=== PATIENT | female | born 1965 | race Caucasian/White ===

== ENCOUNTER 2018-02-11 02:13 | Observation (INO) | payer OTHER ==
[2018-02-11] VITALS (9 sets, daily range): BP systolic 123–155; BP diastolic 61–77; PULSE 43–63; RESP 18–20; TEMP 96–97.8; O2SAT 96–99
[~2018-02-11 02:13] MED LIST: AMLO5TAB2 PO
[2018-02-11] MEDS ORDERED: SODIUM CHLORIDE 0.9% FLUSH 10 ML FLUSH IV FLUSH PRN (03:15)
[2018-02-11] MEDS ORDERED: NITROGLYCERIN 0.4 MG SL 25 TABS/BTL SL PRN (03:15)
[2018-02-11 05:04] LABS: TROPONIN I LESS THAN 0.02 NG/ML (0.02-0.05)
--- NOTE | 2018-02-11 07:05 | EKG ---
Date Performed: 02/11/2018 Time Performed: 03:17:42 PTAGE: 52 years EKG: SINUS BRADYCARDIA NONSPECIFIC T-WAVE ABNORMALITY BORDERLINE ECG NO PREVIOUS TRACING DOCTOR: Harris Anna Interpretating Date/Time 02/11/2018 07:04:17
--- NOTE | 2018-02-11 08:42 | HHI.HP ---
[facility] Unknown Admission Diagnosis Chest pain Diagnoses: (1) Chest pain (2) Hypertension Chief Complaint: Chest pain Travel History International Travel<30 Days: No Contact w/Intl Traveler <30 Da: No Traveled to Known Affected Are: No History of Present Illness Patient is a pleasant 52-year-old female patient with a new medical history of hypertension, who is from [place], who presented to the ED with complaints of chest pressure, headache and some dizziness. Patient states that yesterday around 5 AM she awoke to chest pain that was located in her left chest, characterized as heavy and pressure-like in nature, rated a 7 out of 10 at its worst on pain scale, with associated diaphoresis and mild shortness of breath, denied any nausea or vomiting associated with the pain. Patient states that the pain continued all day, denied any aggravating factors. She does state that her chest pain did resolve upon presentation to the ED when given aspirin and nitroglycerin. Patient does state that she had similar chest pain on Wednesday and it resolved on its own. Patient denies any recent illness including fever, chills, cough, abdominal pain, nausea, vomiting, diarrhea or dysuria. Patient denies history or current tobacco abuse. Denies any history of heart disease. She does have a history of hypertension, states she took her blood pressure yesterday with a systolic in the 150s. She denies ever having a stress test in the past. She does not have a local primary care physician, she is from [place] and follows with the PCP up [place]. Paternal medical history significant for [place]. Review of Systems Constitutional: COMPLAINS OF: Fatigue, DENIES: Fever, Chills Eyes: DENIES: Diplopia Ears, nose, mouth, throat: DENIES: Vertigo Respiratory: COMPLAINS OF: Shortness of breath, DENIES: Cough, Sputum production Cardiovascular: COMPLAINS OF: Chest pain, DENIES: Syncope, Dyspnea on Exertion , Lower Extremity Edema Gastrointestinal: DENIES: Abdominal pain, Black stools, Bloody stools, Constipation, Diarrhea, Nausea, Vomiting Musculoskeletal: DENIES: Joint pain Hematologic/lymphatic: DENIES: Bruising Immunologic/allergic: DENIES: Eczema Neurologic: DENIES: Abnormal gait Psychiatric: COMPLAINS OF: Anxiety Except as stated in HPI: all other systems reviewed are Neg Past Family Social History Past Medical History Hypertension Past Surgical History Hysterectomy Right shoulder repair Reported Medications Active Reported Amlodipine (Amlodipine Besylate) 5 Mg Tab 5 Mg PO DAILY Allergies: Coded Allergies: No Known Allergies (Unverified , 02/10/18) Active Ordered Medications Current Medications Medications (Trade) Dose Ordered Sig/Roro Route Start Time Stop Time Status Last Admin (NS Flush) 2 ml UNSCH PRN IV FLUSH 02/11/18 03:15 (NS Flush) 2 ml BID IV FLUSH 02/11/18 09:00 02/11/18 08:10 (Nitrostat Sl) 0.4 mg Q5M PRN SL 02/11/18 03:15 Family History Paternal medical history significant for [place] at the age of 85. Mother had breast cancer. Social History Patient denies any current or previous tobacco abuse, denies any alcohol or illicit drug use. Physical Exam Vital Signs Vital Signs Date Time Temp Pulse Resp B/P (MAP) Pulse Ox O2 Delivery O2 Flow Rate FiO2 02/11/18 07:50 96.3 43 18 132/61 (84) 96 02/11/18 04:00 96.0 58 20 123/72 (89) 97 02/11/18 03:45 21 Physical Exam GENERAL: Well-developed, well-nourished patient in [facility]. SKIN: Warm and dry. No rash. HEAD: Normocephalic. Atraumatic. EYES: Pupils equal and round. No scleral icterus. No injection or drainage. ENT: No nasal bleeding or discharge. Mucous membranes pink and moist. NECK: Supple. Trachea midline. CARDIOVASCULAR: Regular rate and rhythm. S1, S2 noted. No murmur appreciated. No chest pain to palpation. RESPIRATORY: No accessory muscle use. Clear to auscultation. Breath sounds equal bilaterally. GASTROINTESTINAL: Abdomen soft, non-tender, nondistended. Normoactive bowel sounds x4. MUSCULOSKELETAL: No obvious deformities. Extremities without clubbing, cyanosis , or edema. NEUROLOGICAL: Awake and alert. No obvious cranial nerve deficits. Motor grossly within normal limits. 5/5 muscle strength in bilateral upper and lower extremities. Normal speech. PSYCHIATRIC: Appropriate mood and affect; insight and judgment normal. Laboratory Laboratory Tests Test 02/11/18 03:51 Total Creatine Kinase 59 Troponin I LESS THAN 0.02 Septic Shock Reassessment Septic shock perfusion: reassessment completed Caprini VTE Risk Assessment Caprini VTE Risk Assessment: No/Low Risk (score <= 1) Caprini Risk Assessment Model Point Value = 1 Point Value = 2 Point Value = 3 Point Value = 5 Age 41-60 Minor surgery BMI > 25 kg/m2 Swollen legs Varicose veins or History of unexplained or recurrent spontaneous Oral contraceptives or hormone replacement Sepsis (< 1 month) Serious lung disease, including pneumonia (< 1 month) Abnormal pulmonary function Acute myocardial infarction Congestive heart failure (< 1 month) History of inflammatory bowel disease Medical patient at bed rest Age 61-74 Arthroscopic surgery Major open surgery (> 45 min) Laparoscopic surgery (> 45 min) Malignancy Confined to bed (> 72 hours) Immobilizing plaster cast Central venous access Age >= 75 History of VTE Family history of VTE Factor V Leiden Prothrombin [id number] Lupus anticoagulant Anticardiolipin antibodies Elevated serum homocysteine Heparin-induced thrombocytopenia Other congenital or acquired thrombophilia Stroke (< 1 month) Elective arthroplasty Hip, pelvis, or leg fracture Acute spinal cord injury (< 1 month) Prophylaxis Regimen Total Risk Factor Score Risk Level Prophylaxis Regimen 0-1 Low Early ambulation 2 Moderate Order ONE of the following: *Sequential Compression Device (SCD) *Heparin 5000 units SQ BID 3-4 Higher Order ONE of the following medications: *Heparin 5000 units SQ TID *Enoxaparin/Lovenox 40 mg SQ daily (WT < 150 kg, CrCl > 30 mL/min) *Enoxaparin/Lovenox 30 mg SQ daily (WT < 150 kg, CrCl > 10-29 mL/min) *Enoxaparin/Lovenox 30 mg SQ BID (WT < 150 kg, CrCl > 30 mL/min) AND/OR *Sequential Compression Device (SCD) 5 or more Highest Order ONE of the following medications: *Heparin 5000 units SQ TID (Preferred with Epidurals) *Enoxaparin/Lovenox 40 mg SQ daily (WT < 150 kg, CrCl > 30 mL/min) *Enoxaparin/Lovenox 30 mg SQ daily (WT < 150 kg, CrCl > 10-29 mL/min) *Enoxaparin/Lovenox 30 mg SQ BID (WT < 150 kg, CrCl > 30 mL/min) AND *Sequential Compression Device (SCD) Assessment and Plan Problem List: (1) Chest pain ICD Code: R07.9 - Chest pain, unspecified Plan: Patient has been admitted to the chest pain center for observation. Serial EKGs and serial troponins have been ordered for ruling out ACS purposes. Serial troponins flat. EKG reviewed showing sinus bradycardia, no ST changes to indicate ischemia. Chest pain has resolved at this time. No chest discomfort to palpation. Nitroglycerin as needed for any chest pain. Was given aspirin and nitroglycerin in the ED. Will place on aspirin daily for CAD prevention. Continue cardiac telemetry, patient is bradycardic with a heart rate in the 40s. Asymptomatic. CBC and BMP reviewed, essentially unremarkable. BNP 28. Chest x-ray showing diminished lung volumes with probable atelectasis. Patient will undergo a cardiac treadmill stress test to further rule out any ischemia. Patient's risk factors include father with history of CAD and [place], age, and history of hypertension. Further treatment plan and hospitalization will depend on cardiac treadmill images. Patient is stable at this time and agreeable to the plan. (2) Hypertension ICD Code: I10 - Essential (primary) hypertension Plan: Patient will be restarted on her home amlodipine. Monitor blood pressure trends. (3) Bradycardia ICD Code: R00.1 - Bradycardia, unspecified Plan: Patient is asymptomatic. Heart rate in the 40s. Will continue cardiac telemetry. DVT prophylaxis: SCDs. Ambulation. Assessment and Plan Patient underwent cardiac treadmill stress test, imaging reviewed by on-call karate instructor, Dr. Ahn, markedly depressed ST changes in inferior leads as well as the 3, V4, V5, V6. Patient will be transferred to CICU at the [facility] to undergo a cardiac catheterization. Dr. Patton, on-call karate instructor has been updated. Melissa Bradley Feb 11, 2018 08:42
[2018-02-11] MEDS ORDERED: SODIUM CHLORIDE 0.9% FLUSH 10 ML FLUSH IV FLUSH SCH (09:00)
[2018-02-11] MEDS ORDERED: HEPARIN-NS/PF INJ 1,000 ML ONE (13:49)
[2018-02-11] MEDS ORDERED: NITROGLYCERIN INJ 5 ML ONE (13:51)
[2018-02-11] MEDS ORDERED: MIDAZOLAM HCL 2 MG/2 ML VIAL ONE (14:36)
--- NOTE | 2018-02-11 14:59 | MB ---
cc: Mic Patton MD DATE: 02/11/2018 INDICATION: Abnormal stress test, intermediate risk. HISTORY OF PRESENT ILLNESS: This is a 52-year-old female with history of hypertension, who is here from [place]. She presents with several episodes of intermittent substernal chest pain associated with shortness of breath and diaphoresis. Symptoms were relieved by nitroglycerin. She presented to [place], underwent exercise electrocardiogram. Initially, she was going to have a nuclear myocardial perfusion, but secondary to development of symptoms associated with profound ST depression, the remainder of the stress test was terminated. We were contacted to send her over for consideration of cardiac catheterization. PAST MEDICAL HISTORY: Hypertension. SOCIAL HISTORY: Denies any alcohol, tobacco or drug use. FAMILY HISTORY: Denies any family history of early coronary artery disease or sudden cardiac . REPORTED MEDICATIONS: Amlodipine. ALLERGIES: NONE. REVIEW OF SYSTEMS: A 12-point review of systems was performed, negative unless otherwise noted in the History Of Present Illness. PHYSICAL EXAMINATION: VITAL SIGNS: Temperature is 96, pulse is 58, blood pressure 132/61 mmHg. GENERAL: Alert and oriented x3, in no acute distress. HEENT: Exam shows pupils reactive to light and accommodation. Extraocular movements are intact. NECK: No elevation in jugular venous distention. No thyromegaly. No lymphadenopathy. No carotid bruits. LUNGS: Clear to auscultation bilaterally. CARDIOVASCULAR: Regular rate and rhythm without murmurs, rubs, or gallops. ABDOMEN: Nontender, nondistended with good bowel sounds. No hepatosplenomegaly. EXTREMITIES: No clubbing, cyanosis or edema and good peripheral pulses. NEUROLOGIC: Cranial nerves intact. Motor, sensory grossly intact. LABORATORY DATA: Troponins negative. ASSESSMENT: 1. Unstable angina. 2. Intermediate risk stress test. 3. Hypertension. PLAN: Given the patient's symptoms in the setting of intermediate stress test with cardiovascular risk factors, we elected to proceed with cardiac catheterization. She was transferred over from [facility] to the [facility] for cardiac catheterization. Risks, benefits, and alternatives were discussed with the patient. The patient understood and consented to the procedure. Mic Patton MD MALA/SB , 02:44 PM , 02:58 PM
--- NOTE | 2018-02-11 15:08 | CATHPROC ---
[facility] HIS Report Study Information Study Number Admission Scheduled Start Study Start [id number] Feb 11 2018 2:23AM 02/11/2018 Feb 11 2018 2:27PM [facility] Cardiac Catheterization Admit Source Facility Department Transfer in from another acute care facility [facility] - Analytics Leader Physician and Clinical Staff Initial Mic Phelps Medical Administrator Angel Scruggs,RN Other cathlab, cathlab Recorder Paul Mares RCIS(BS) Scrub Juilann Medley,RT(R) Procedures Performed Procedure Location (Site) Vessel Name Coronary Angiograms LCA Left Coronary Coronary Angiograms RCA Right Coronary L Heart Cath Equipment Time Bar And Filler Assembler Description Size Mfg Part Number Used/Scraped TRANSDUCER, TRUWAVE [id number] 14:29 NINO RIDDLE * Used W/STOCKCOCK *[id number] *[id number] 14:29 [employer]ut BLANKET,WARM AIR CCL * Used *[id number] 14:29 [employer] PACK, CCL CUSTOM * Used *[id number] 14:29 [employer] SUPPORT, ARTERIAL ADULT [id number] *[id number] Used [id number] 14:29 [employer] PACER PEN, SKIN DUAL W/ RULER * Used *[id number] 14:53 MEDTRONIC JR 5.0 DXTERITY CATHETER fr 5 [id number] Used BAND, RADIAL COMPRESSION TR [id number] 14:58 [employer] 24CM Used SHORT 24 *[id number] SHEATH, FR6 RADIAL PRELUDE 14:29 [employer] FR 6 [id number] Used EASE 11CM [id number] 14:29 [employer] WIRE, EXCHANGE 260CM 3MMJ 260CM Used *[id number] 14:29 NAMIC MANIFOLD, 4 PORT * Used *[id number] 14:29 [employer]COMED OMNIPAQUE, 350 MG, 150ML 150ML [id number] Used History: Current Medications Medication Dosage/Unit Route Frequency Last Date/Time Taken NTG Patch History: Allergies Allergy Reaction No Known Allergies History: Risk Factors Family History of Hypertension Dyslipidemia Previous CA Previous Heart Failure Premature CAD Yes No No No No Prior Valve Prior PCI Prior CABG Surgery No No No Cerebrovascular Peripheral Artery Chronic Lung On Dialysis Diabetes Disease Disease Disease No No No No No History: Symptoms/Diagnosis Selection Items Chest pain History: Stress Tests Stress or Imaging Studies Performed Yes Standard Exercise Stress Test No Stress Echo No Stress Test SPECT Stress Test SPECT Result Stress Test SPECT Ischemia Risk/Extent Yes Positive Intermediate Stress Test CMR No Cardiac CTA Coronary Calcium Score No No History: Other Disease Selection Items HTN History: Other Current Smoker No Labs Hgb (g/dl) 11.60-17.00 Not Drawn Creatinine (mg/dl) 0.50-1.30 Not Drawn Troponin I (ng/ml) CPK (u/l) CPK-MB (ng/ML) 0.02-0.05 26.00-308.00 0.50-3.60 0.02 56 Not Drawn Medication Medication Total Dose (Bolus/Oral) Medication Total Dosage/Unit 1% XYLOCAINE 2 mL FENTANYL 50 mcg HEPARIN 3000 units NTG (IC) 200 mcg VERSED 2 mg Medications (Bolus/Oral) Medication Time Given Dosage/Unit Administered By Reason VERSED 02/11/2018 2:47:28 PM 2 mg Angel Scruggs 2 mg VERSED given in lab by Angel Scruggs RN in Right Antecubital via Peripheral IV. FENTANYL 02/11/2018 2:48:02 PM 50 mcg Angel Scruggs 50 mcg FENTANYL given in lab by Angel Scruggs RN in Right Antecubital via Peripheral IV. 1% XYLOCAINE 02/11/2018 2:49:05 PM 2 mL Mic Patton 2 mL 1% XYLOCAINE given in lab by Mic Patton in Right Radial via Subcutaneous. NTG (IC) 02/11/2018 2:51:18 PM 200 mcg Mic Patton 200 mcg NTG (IC) given in lab by Mic Patton in Right Radial via Intra-arterial. HEPARIN 02/11/2018 2:52:14 PM 3000 units Angel Scruggs 3000 units HEPARIN given in lab by Angel Scruggs RN in Right Radial via Peripheral IV. Ordered by Mic Wolfe. Medication (Drip) Medication Time Given Dosage/Unit Concentration/Unit Diluent (ml) Solutio n IV Solutions 02/11/2018 2:27:28 PM 0 mL (IV) 500 NaCl .9 Patient arrived on IV Solutions in Right Antecubital via Peripheral IV. Pump/Drip Flow = 20 ml/hr usi ng NaCl .9. Initial Case Assessment Cardiovascular HR Rhythm NIBP Chest Pain 70 nsr 154/126 0 Edema Present Skin color Skin None Normal Warm Dry Circulatory - Right Pulses Dorsalis Pedis Femoral Radial 2 2 3 Scale (0,1,2,3,4,d) Scale (0,1,2,3,4,d) Neurological State Oriented to time-place- Alert Moves all extremities person Respiration - General Respiration Rate SpO2 (%) (B/min) 15 97 Final Case Assessment Cardiovascular HR Rhythm NIBP Chest Pain 56 nsr 148/76 0 Edema Present Skin color Skin None Normal Warm Dry Circulatory - Right Pulses Dorsalis Pedis Femoral Radial 2 2 3 Scale (0,1,2,3,4,d) Scale (0,1,2,3,4,d) Neurological State Oriented to time-place- Alert Moves all extremities person Respiration - General Respiration Rate SpO2 (%) (B/min) 15 97 Chronological Log Time Study Chronological Log 14:27:19 Patient arrived via Bed. 14:27:20 Patient Name, D.O.B, / Armband Verified By R.N. 14:27:20 Consent signed by the physician and the patient and verified by the Analytics Leader staff. 14:27:21 Pre-op and post- op instructions given; patient acknowledges understanding of instructions. 14:27:21 Verbal Stimulation=2 Physical Stimulation=2 Airway=2 Respiration=2 TOTAL=8. (0=absent, 1=li mited, 2=present) 14:27:22 Presedation assessment performed by Analytics Leader RN. 14:27:23 Immediate Presedation assesment performed by physician. 14:27:23 Patient has been NPO for More than 6Hrs. 14:27:24 Skin Breakdown- none per patient 14:27:24 Patient Warmer Placed on the Table. 14:27:25 Yolie Prominences Protected 14:: A # 20 IV was noted in the Antecubital (right). Grade = 0 14:27:28 Patient arrived on IV Solutions in Right Antecubital via Peripheral IV. Pump/Drip Flow = 20 ml/hr using NaCl .9. 14:27:29 History and physical on the chart or being dictated. 14:29: MD arrived. Assessment: Initial Case, HR=70 BPM, Rhythm=nsr, NXOT=015/126 mmhg, Chest Pain=0, Edema=None, Color=Normal, Skin = Warm, Dry 14:33:41 Right Pulses: Hector Ped=2, Femoral=2, Radial=3 Neurological: State=Alert, Ox3, FREED Respiration: Resp=15 B/min, SpO2=97 % Vitals capture started with the following parameters, Patient=Adult, Interval=5 min, Initial Pr odchbx=000 mmHg, 14:35:04 Deflation Rate=5 mmHg, Cuff placed on Left Arm 14:35:43 HR=70 bpm, LXAP=478/126 mmhg, SpO2=98.0 %, Pain=0, Montez=10, Villavicencio=2 Vitals capture started with the following parameters, Patient=Adult, Interval=5 min, Initial Pr odzhps=865 mmHg, 14:38:06 Deflation Rate=5 mmHg, Cuff placed on Left Arm 14:38:07 Reference ECG taken 14:39:12 Right Radial and groin(s) prepped with 2% chlorhexidine, and draped after a 3 min. waiting time. 14:39:21 Contrast Scanned 14:39:21 Immediate Presedation assesment performed by physician. 14:39:34 HR=57 bpm, CEOF=413/79 mmhg, SpO2=98.0 %, Resp=16 B/min, Pain=0, Montez=10, Villavicencio=2 14:43:48 HR=55 bpm, HXOD=543/89 mmhg, SpO2=99.0 %, Resp=17 B/min, Pain=0, Montez=10, Villavicencio=2 14:45:50 Pressure channel 1 zeroed. Time Out. Correct patient, correct procedure, correct physician, labs, allergies, and equipment verified with clinical laboratory scientist 14:46:43 team present. Fire risk assesment completed (see hard stop sheet for coding). Time Out Conc urred by MD and individual staff in procedure. 14:47:28 2 mg VERSED given in lab by Angel Scruggs RN in Right Antecubital via Peripheral IV. 14:48:02 50 mcg FENTANYL given in lab by Anegl Scruggs RN in Right Antecubital via Peripheral IV. 14:48:45 HR=80 bpm, KCFO=848/101 mmhg, EnX0=412.0 %, Resp=12 B/min, Pain=0, Montez=10, Villavicencio=2 14:49:00 Case Start 14:49:05 2 mL 1% XYLOCAINE given in lab by Mic Patton in Right Radial via Subcutaneous. 14:49:21 Verbal Stimulation=2 Physical Stimulation=2 Airway=2 Respiration=2 TOTAL=8. (0=absent, 1=li mited, 2=present) 14:50:03 Access site was Right Radial Artery. A SHEATH, FR6 RADIAL PRELUDE EASE 11CM FR 6 was advanced into the Radial (right) using the Perc utaneous 14:50:45 technique. 14:51:10 In the Radial (right) the SHEATH, FR6 RADIAL PRELUDE EASE 11CM FR [address] by Mic Patton. 14:51:18 200 mcg NTG (IC) given in lab by Mic Patton in Right Radial via Intra-arterial. 14:52:14 3000 units HEPARIN given in lab by Angel Scruggs RN in Right Radial via Peripheral IV. Orde red by Mic Patton. A JR 5.0 DXTERITY CATHETER fr 5 was advanced over a wire. OMNIPAQUE, 350 MG, 150ML 150ML was us ed for 14:52:36 injections. Recorded Pressure: LV, HR=54, Condition=Condition 1 14:53:37 (Left Ventricle) LV 149/4/14 Recorded Pressure: LV, Ao, HR=52, Condition=Condition 1 14:53:52 (Left Ventricle) LV 152/4/17, (Aorta) Ao 142/80/106 14:53:52 HR=52 bpm, TALD=531/78 mmhg, SpO2=96.0 %, Resp=13 B/min, Pain=0, Montez=10, Villavicencio=2 Recorded Pressure: Ao, HR=59, Condition=Condition 1 14:54:02 (Aorta) Ao 149/81/111 14:54:15 The RCA was injected and visualized at various angles. OMNIPAQUE, 350 MG, 150ML 150ML use d. After removing the current catheter a JL 3.5 INFINITI CATHETER FR 5 was advanced over a WIRE, EXCHANGE 260CM 14:54:46 3MMJ 260CM. 14:57:06 The LCA was injected and visualized at various angles. OMNIPAQUE, 350 MG, 150ML 150ML use d. 14:57:57 Catheter was removed 14:58:28 Case End (Physician broke scrub) 14:58:45 HR=63 bpm, NESE=973/76 mmhg, SpO2=92.0 %, Resp=17 B/min, Pain=0, Montez=10, Villavicencio=2 Assessment: Final Case, HR=56 BPM, Rhythm=nsr, SBKT=705/76 mmhg, Chest Pain=0, Edema=None, Col or=Normal, Skin = Warm, Dry 15:02:17 Right Pulses: Hector Ped=2, Femoral=2, Radial=3 Neurological: State=Alert, Ox3, FREED Respiration: Resp=15 B/min, SpO2=97 % Radial Compression Device Used. 11 mLs of air placed in BAND, RADIAL COMPRESSION TR SHORT 24 2 4CM. Affected 15:02:35 hand 96 % O2 saturation. 15:02:44 Sterile dressing applied to site 15:02:44 No case complications noted. 15:02:45 Cine recording checked. 15:02:46 Bedside Report will be given. 15:02:50 Verbal Stimulation=2 Physical Stimulation=2 Airway=2 Respiration=2 TOTAL=8. (0=absent, 1=l imited, 2=present) 15:02:56 A Left Heart Cath was performed. End Study - Contrast Media Used In Study Contrast Total Opened (mL) Total Used (mL) Total Wasted (mL) Omnipaque 30 30 0 End Study - Radiation Exposure Fluoro Time (minutes) 2.0 End Study - Patient Disposition Complications Transferred To Interventional Outcome No Telemetry Bed No attempt made
[2018-02-11] MEDS ORDERED: oxyCODONE/ACETAMINOPHEN 5 MG/325 MG TAB PO PRN (15:15)
[2018-02-11] MEDS ORDERED: BACITRACIN OINT 0.9 GM PKT TOP ONE (15:15)
[2018-02-11] MEDS ORDERED: MISC INFORMATION XX ONE (15:15)
--- NOTE | 2018-02-11 15:24 | MA ---
cc: Mic Patton MD DATE: 02/11/2018 DATE OF PROCEDURE: 02/11/2018. INDICATION: Abnormal stress test. PROCEDURES PERFORMED: 1. Fluoroscopy with interpretation. 2. Left heart catheterization. 3. Coronary angiography. METHOD: Risks, benefits and alternatives were discussed with the patient, the patient understood and consented to the procedure. The patient was brought into the cardiac catheterization lab, placed on the catheterization table. The right wrist was prepped and draped in sterile fashion. The right wrist was anesthetized with 2% lidocaine. The right radial artery was cannulated and a 6-Maltese, 7-cm sheath was placed without difficulty. LEFT HEART CATHETERIZATION: Intraventricular hemodynamics measures at 152/4 mmHg. CORONARY ANGIOGRAPHY: 1. Left main coronary artery is angiographically normal. 2. Left anterior descending coronary artery is angiographically normal. 3. Left circumflex coronary artery is angiographically normal. 4. Right coronary artery is angiographically normal. CONCLUSIONS: Angiographically normal coronary arteries. PLAN: This stress test is a false positive, the patient's symptoms atypical and noncardiac. The patient can be discharged today and follow up with outpatient primary care doctor. Mic Patton MD MALA/SB , 03:04 PM , 03:22 PM
[2018-02-11] MEDS ORDERED: ASPI81 CHEW (16:00)
--- NOTE | 2018-02-11 16:01 | HHI.DCPOC ---
Discharge Care Plan Diagnosis: (1) Chest pain (2) Bradycardia (3) Hypertension Goals to Promote Your Health * To prevent worsening of your condition and complications * To maintain your health at the optimal level Directions to Meet Your Goals Take your medications as prescribed Follow your dietary instruction Follow activity as directed Keep your appointments as scheduled Take your immunizations and boosters as scheduled If your symptoms worsen call your PCP, if no PCP go to Urgent Care Center or Emergency Room Smoking is Dangerous to Your Health. Avoid second hand smoke Call the 24-hour hour crisis hotline for domestic abuse at Melissa Bradley Feb 11, 2018 16:01
[2018-02-11] MEDS ORDERED: IOHEXOL 350 MG/ML 50 ML BTL (for Cath Lab) OTHER ONE (18:29)
[2018-02-11 19:26] LABS: CHOLESTEROL/ HDL RATIO 2.58 RATIO; HDL CHOLESTEROL 70.8 MG/DL (40.0-60.0)
[2018-02-12] MEDS ORDERED: ASPIRIN 81 MG CHEW TAB CHEW SCH (09:00)
[2018-02-12] MEDS ORDERED: amLODIPine BESYLATE 5 MG TAB PO SCH (09:00)
--- NOTE | 2018-02-12 12:49 | EKG ---
Date Performed: 02/11/2018 Time Performed: 08:24:08 PTAGE: 52 years EKG: SINUS BRADYCARDIA NONSPECIFIC T-WAVE ABNORMALITY BORDERLINE ECG PREVIOUS TRACING 02/11/18 Since the previous tracing, no significant change noted DOCTOR: Phillip Crump Interpretating Date/Time 02/12/2018 12:48:34
--- NOTE | 2018-02-15 07:43 | TR ---
Date Performed: 02/11/2018 Time Performed: 12:15:34 DOCTOR: Denita Ahn DRUG LIST: CLINICAL HISTORY: CHEST PAIN REASON FOR TEST: Chest pain REASON FOR ENDING: OBSERVATION: CONCLUSION: Arturo protocol performed, test stopped 2/2 leg fatigue and shortness of breath. No r eproducible chest discomfort. Great exercise tolerance. BP response good. Recovery quick and unremark able. ST depression in II, III, and aVF.Maximum PY=953 Target HR Achieved=98.0% Maximum IP=809/90 Tot al Exercise Time=9:00 COMMENTS: Markedly abnormal: high risk ETT - consider cardiac cath
== END 2018-02-11 18:30 | disposition home or self-care (01) ==
LOC: PHEDDLT 02:13 → PH3B 02:23 → HCPC 15:12
PROVIDERS: ADMIT Hospitalist; ATTEND Hospitalist
DX: R07.9 Chest pain, unspecified (principal); I10 Essential (primary) hypertension; R51 Headache; R42 Dizziness and giddiness; R61 Generalized hyperhidrosis; R06.02 Shortness of breath; Z90.710 Acquired absence of both cervix and uterus; Z80.3 Family history of malignant neoplasm of breast; R00.1 Bradycardia, unspecified; Z82.49 Family history of ischemic heart disease and other diseases of the circulatory system; R94.39 Abnormal result of other cardiovascular function study; I20.0 Unstable angina; R94.31 Abnormal electrocardiogram [ECG] [EKG]
CPT/HCPCS: 80061; 82550; 84484; 93005; 93017; 93458; 99152; 99285; C1769; C1893; G0378; J1644; J2250; J3010; Q9967